=== PATIENT | female | born 1955 | race Caucasian/White ===

== ENCOUNTER → 2017-09-15 | Outpatient (CLI) | payer OTHER | END | disposition home or self-care (01) | LOC: PCVCIMAG 13:24 | DX: I10 Essential (primary) hypertension (principal); R07.9 Chest pain, unspecified; R60.0 Localized edema; G47.33 Obstructive sleep apnea (adult) (pediatric); R06.09 Other forms of dyspnea; Z87.898 Personal history of other specified conditions; Z79.82 Long term (current) use of aspirin; Z79.899 Other long term (current) drug therapy | CPT/HCPCS: 93005; 93306; 93351 ==